=== PATIENT | male | born 1995 | race American Indian/Alaskan Native ===

== ENCOUNTER 2017-05-09 16:48 | Emergency (ER) | payer OTHER ==
[2017-05-09 18:28] VITALS: BP 113/69
--- NOTE | 2017-05-09 19:03 | Emergency Department Report ---
ED Headache HPI - General Chief Complaint: Headache Stated Complaint: HEADACHE Time Seen by Provider: 05/09/17 17:42 - History of Present Illness Initial Comments: Patient is a 21-year-old -[place] male who is presenting with headaches. Patient states he has had headaches off and on for years. Patient had a negative CT scan in the past. Patient states that her headache is posterior and radiates to the front. Denies any nausea or vomiting no light sensitivity does have some dizziness associated with the headache. Patient states he he feels a spinning sensations rushing when he stands. Patient states this, feels like he has no energy. Patient states the headache is 6/10 in severity. Allergies/Adverse Reactions: Allergies No Known Allergies Allergy (Unverified 05/09/17 16:52) Home Medications: Ambulatory Orders Butalb/Acetaminophen/Caffeine [Fioricet 50-300-40 mg CAP] 1 cap PO Q8HR PRN #12 cap 05/09/17 Ibuprofen [Motrin] 800 mg PO Q8HR PRN #20 tablet 05/09/17 Meclizine [Antivert] 25 mg PO TID PRN #12 tablet 05/09/17 ED Review of Systems ROS: Stated complaint: HEADACHE Other details as noted in HPI Comment: All other systems reviewed and negative ED Past Medical Hx - Past Medical History Previous Medical History?: No - Surgical History Past Surgical History?: No - Social History Smoking Status: Current Every Day Smoker Substance Use Type: None - Medications Home Medications: Home Medications Medication Instructions Recorded Confirmed Last Taken Type Butalb/Acetaminophen/Caffeine 1 cap PO Q8HR PRN #12 cap 05/09/17 Unknown Rx [Fioricet 50-300-40 mg CAP] Ibuprofen [Motrin] 800 mg PO Q8HR PRN #20 tablet 05/09/17 Unknown Rx Meclizine [Antivert] 25 mg PO TID PRN #12 tablet 05/09/17 Unknown Rx ED Physical Exam - General Limitations: No Limitations General appearance: alert, in no apparent distress - Head Head exam: Present: atraumatic, normocephalic - Eye Eye exam: Present: normal appearance - ENT ENT exam: Present: mucous membranes moist - Neck Neck exam: Present: normal inspection - Respiratory Respiratory exam: Present: normal lung sounds bilaterally. Absent: respiratory distress - Cardiovascular Cardiovascular Exam: Present: regular rate, normal rhythm. Absent: systolic murmur, diastolic murmur, rubs, gallop - GI/Abdominal GI/Abdominal exam: Present: soft, normal bowel sounds - Rectal Rectal exam: Present: deferred - Extremities Exam Extremities exam: Present: normal inspection - Back Exam Back exam: Present: normal inspection - Neurological Exam Neurological exam: Present: alert, oriented X3 - Psychiatric Psychiatric exam: Present: normal affect, normal mood - Skin Skin exam: Present: warm, dry, intact, normal color. Absent: rash ED Course Vital Signs 05/09/17 05/09/17 16:52 18:28 Temperature 98.1 F Pulse Rate 62 Pulse Rate [ 52 L Lying] Pulse Rate [ 53 L Sitting] Pulse Rate [ 60 Standing] Respiratory 18 Rate Blood Pressure 121/74 Blood Pressure 113/69 [Lying] Blood Pressure 116/67 [Sitting] Blood Pressure 113/77 [Standing] O2 Sat by Pulse 97 Oximetry ED Medical Decision Making - Medical Decision Making Status negative patient's will be referred to neurology for follow-up will also be started on Fioricet and Antivert Critical care attestation.: If time is entered above; I have spent that time in minutes in the direct care of this critically ill patient, excluding procedure time. ED Disposition Clinical Impression: Headache Qualifiers: Headache type: unspecified Headache chronicity pattern: episodic headache Intractability: not intractable Qualified Code(s): R51 - Headache Disposition: DC-01 TO HOME OR SELFCARE Is pt being admited?: No Does the pt Need Aspirin: No Condition: Stable Instructions: Cluster Headache (ED), Migraine Headache (ED), Tension Headache ( ED) Prescriptions: Butalb/Acetaminophen/Caffeine [Fioricet 50-300-40 mg CAP] 1 cap PO Q8HR PRN #12 cap PRN Reason: Headache Ibuprofen [Motrin] 800 mg PO Q8HR PRN #20 tablet PRN Reason: Pain Meclizine [Antivert] 25 mg PO TID PRN #12 tablet PRN Reason: Vertigo Referrals: YORDY AHUMADA MD [Staff Physician] - 3-5 Days
== END 2017-05-09 19:10 | disposition home or self-care (01) ==
LOC: ED 16:48
DX: R51 Headache (principal); F17.200 Nicotine dependence, unspecified, uncomplicated
CPT/HCPCS: 99282